=== PATIENT | female | born 1995 | race Caucasian/White ===

== ENCOUNTER 2017-05-02 22:02 | Inpatient (IN) | payer OTHER ==
[2017-05-02 22:37] LABS: ABSOLUTE BASOPHILS # (AUTO) 0.1 10^3/uL (0.0-0.2); ABSOLUTE EOSINOPHILS # (AUTO) 0.1 10^3/uL (0.0-0.6); ABSOLUTE LYMPHOCYTES (AUTO) 2.6 10^3/uL (0.5-4.7); ABSOLUTE MONOCYTES (AUTO) 0.7 10^3/uL (0.1-1.4); ABSOLUTE NEUT (AUTO) 5.5 10^3/uL (1.7-8.2); BASOPHILS % (AUTO) 0.9 % (0-2); EOSINOPHILS % (AUTO) 1.6 % (0-6); HEMATOCRIT 40.4 % (36.0-47.0); HEMOGLOBIN 13.5 g/dL (12.0-15.5); HGB HCT DIFFERENCE 0.1; LYMPHOCYTES % (AUTO) 28.7 % (13-45); MEAN CORPUSCULAR HEMOGLOBIN 29.2 pg (27.0-33.4); MEAN CORPUSCULAR HGB CONC 33.3 g/dL (32.0-36.0); MEAN CORPUSCULAR VOLUME 88 fl (80-97); MONOCYTES % (AUTO) 7.5 % (3-13); RED BLOOD COUNT 4.61 10^6/uL (3.72-5.28); RED CELL DISTRIBUTION WIDTH 14.6 % (11.5-14.0); SEGMENTED NEUTROPHILS % (AUTO) 61.3 % (42-78); WHITE BLOOD COUNT 8.9 10^3/uL (4.0-10.5)
[2017-05-02 22:54] LABS: ALANINE AMINOTRANSFERASE 34 U/L (5-35); ALBUMIN 4.2 g/dL (3.7-5.6); ALCOHOL < 10 mg/dL (NONE DETECTED); ALKALINE PHOSPHATASE 116 U/L (50-135); ANION GAP 9 (5-19); ASPARTATE AMINO TRANSFERASE 36 U/L (5-30); BILIRUBIN,DIRECT 0.2 mg/dL (0.0-0.4); BILIRUBIN,TOTAL 0.6 mg/dL (0.2-1.3); BLOOD UREA NITROGEN 14 mg/dL (7-20); CALCIUM 9.4 mg/dL (8.4-10.2); CARBON DIOXIDE 28 mmol/L (22-30); CHLORIDE 106 mmol/L (98-107); CREATININE RESULT 0.77 mg/dL (0.52-1.25); GLUCOSE 103 mg/dL (75-110); POTASSIUM 4.2 mmol/L (3.6-5.0); SODIUM 143.1 mmol/L (137-145); TOTAL PROTEIN 7.7 g/dL (6.3-8.2)
[2017-05-03 00:04] LABS: APPEARANCE,URINE SLIGHTLY-CLOUDY; BILIRUBIN,URINE NEGATIVE (NEGATIVE); GLUCOSE, URINE NEGATIVE (NEGATIVE); KETONES,URINE NEGATIVE (NEGATIVE); LEUKOCYTE ESTERASE,URINE NEGATIVE (NEGATIVE); NITRITE,URINE NEGATIVE (NEGATIVE); PROTEIN,URINE 30 mg/dL (NEGATIVE); URINE SPECIFIC GRAVITY 1.024; UROBILINOGEN,URINE NEGATIVE mg/dL (<2.0)
[2017-05-03 00:16] LABS: URINE BARBITURATES SCREEN NEGATIVE; URINE METHADONE SCREEN NEGATIVE; URINE OPIATES LOW NEGATIVE; URINE PHENCYCLIDINE SCREEN NEGATIVE
--- NOTE | 2017-05-03 00:57 | ER Document Report ---
ED General - General Chief Complaint: Overdose Stated Complaint: POSSIBLE OVERDOSE Time Seen by Provider: 05/02/17 23:33 Notes: Patient is a 21-year-old female without past medical history, no prior diagnosis of mental health illness who presents after ingesting 10,000 mg of acetaminophen at 2100. States that she did this without clear intention but states "I did not really care if I or not". No history of similar attempts in the past. Denies any active suicidal ideation at this time. She has had some associated nausea without vomiting. Nothing improves or worsens her symptoms. She denies any coingestions. She came to the emergency department at the request of her but has not informed her primary care doctor that she has come to the emergency department. TRAVEL OUTSIDE OF THE [place] IN LAST 30 DAYS: No - Related Data Allergies/Adverse Reactions: No Known Drug Allergies Allergy (Verified 05/03/17 01:10) Past Medical History - General Information source: Patient - Social History Smoking Status: Never Smoker Frequency of alcohol use: None Drug Abuse: None Lives with: Spouse/Significant other Family History: Reviewed & Not Pertinent Patient has suicidal ideation: No Patient has homicidal ideation: No Renal/ Medical History: Denies: Hx Peritoneal Dialysis Review of Systems - Review of Systems Notes: Constitutional: Negative for fever. HENT: Negative for sore throat. Eyes: Negative for visual changes. Cardiovascular: Negative for chest pain. Respiratory: Negative for shortness of breath. Gastrointestinal: Negative for abdominal pain, positive for nausea Genitourinary: Negative for dysuria. Musculoskeletal: Negative for back pain. Skin: Negative for rash. Neurological: Negative for headaches, weakness or numbness. 10 point ROS negative except as marked above and in HPI. Physical Exam - Vital signs Vitals: Temp Pulse Resp BP Pulse Ox 98 F 80 14 105/62 100 05/02/17 22:17 05/02/17 22:17 05/02/17 22:17 05/02/17 22:17 05/02/17 22:17 Interpretation: Normal Notes: PHYSICAL EXAMINATION: GENERAL: Well-appearing, well-nourished and in no acute distress. HEAD: Atraumatic, normocephalic. EYES: Pupils equal round and reactive to light, extraocular movements intact, sclera anicteric, conjunctiva are normal. ENT: nares patent, oropharynx clear without exudates. Moist mucous membranes. NECK: Normal range of motion, supple without lymphadenopathy LUNGS: Breath sounds clear to auscultation bilaterally and equal. No wheezes rales or rhonchi. HEART: Regular rate and rhythm without murmurs ABDOMEN: Soft, nontender, normoactive bowel sounds. No guarding, no rebound. No masses appreciated. EXTREMITIES: Normal range of motion, no pitting or edema. No cyanosis. NEUROLOGICAL: No focal neurological deficits. Moves all extremities spontaneously and on command. PSYCH: Normal mood, normal affect. SKIN: Warm, Dry, normal turgor, no rashes or lesions noted. Course - Re-evaluation Re-evalutation: 05/03/17 00:56 Patient presents after ingesting up to 10,000 mg of acetaminophen. Initial Tylenol level obtained immediately upon arrival is elevated although this is sooner than 4 hours from ingestion which patient is certain was 2100. We will draw second level now for a true four-hour level. She denies any additional coingestions. Salicylates are negative. Remainder of her laboratories are unremarkable. She denies any active suicidal ideation although states that when she took the pills "I was okay with dying". This is a very severe suicide attempt whether or not patient knew this is unclear. She was placed on involuntary commitment and if Tylenol levels remain elevated she may require N- acetylcysteine therapy. 05/03/17 02:00 4 hour Tylenol level remains at a toxic level at 193. I discussed this case with poison control who agrees with the administration of N-acetylcysteine. Will load with 150 mg/kg IV followed by 15 mg/kg continuous infusion for the next 23 hours thereafter. She will require admission to the hospitalist service. IVC has been placed. - Vital Signs Vital signs: Temp Pulse Resp BP Pulse Ox 98.1 F 78 16 110/72 98 05/03/17 01:02 05/03/17 01:02 05/03/17 01:02 05/03/17 01:02 05/03/17 01:02 - Laboratory Result Diagrams: 05/02/17 22:30 05/02/17 22:30 Laboratory results interpreted by me: 05/02/17 05/02/17 05/02/17 22:30 22:30 23:44 RDW 14.6 H AST 36 H Urine Protein 30 H Urine Blood LARGE H Urine Ascorbic Acid 40 H Salicylates < 1.0 L Acetaminophen 244 H* 05/03/17 00:56 RDW AST Urine Protein Urine Blood Urine Ascorbic Acid Salicylates Acetaminophen 193 H* - EKG Interpretation by Me Additional EKG results interpreted by me: 05/03/17 02:46 Normal sinus rhythm. Rate 72. No ST elevations or depressions. QTC is 425 Discharge - Discharge Clinical Impression: Attempted suicide Acetaminophen overdose Qualifiers: Encounter type: initial encounter Injury intent: intentional self-harm Qualified Code(s): T39.1X2A - Poisoning by 4-Aminophenol derivatives, intentional self-harm, initial encounter Condition: Fair Disposition: ADMITTED INPATIENT [facility] Admitted: Telemetry
[2017-05-03] MEDS ORDERED: ACETYLCYSTEINE INJ 6000 MG/30 ML IV ONE (01:50)
[2017-05-03] MEDS ORDERED: ONDANSETRON HCL INJ/PF 4 MG/2 ML SDV IV ONE (02:03)
[2017-05-03] MEDS ORDERED: IPRATROPIUM/ALBUTEROL 0.5-2.5 MG/3 ML AMPUL NEB PRN (02:09)
[2017-05-03] MEDS ORDERED: ACETYLCYSTEINE INJ 6000 MG/30 ML IV SCH ×2 (02:15→03:00)
[2017-05-03] MEDS ORDERED: LORAZEPAM INJ 2 MG/1 ML VIAL IV PRN (02:18)
[2017-05-03 03:49] LABS: PROTHROMBIN TIME 13.7 SEC (11.4-15.4)
[2017-05-03 03:59] LABS: ALANINE AMINOTRANSFERASE 32 U/L (5-35); ALKALINE PHOSPHATASE 22 U/L (50-135); ANION GAP 18 (5-19); ASPARTATE AMINO TRANSFERASE 24 U/L (5-30); BILIRUBIN,DIRECT 0.2 mg/dL (0.0-0.4); BILIRUBIN,TOTAL 0.5 mg/dL (0.2-1.3); BLOOD UREA NITROGEN 13 mg/dL (7-20); CARBON DIOXIDE 23 mmol/L (22-30); CHLORIDE 104 mmol/L (98-107); CREATININE RESULT 0.52 mg/dL (0.52-1.25); GLUCOSE 115 mg/dL (75-110); POTASSIUM 3.7 mmol/L (3.6-5.0); SODIUM 144.6 mmol/L (137-145); TOTAL PROTEIN 7.2 g/dL (6.3-8.2)
[2017-05-03] MEDS: NORMAL SALINE 1000 ML 1,000 ML IV SCH ×2 (04:17→08:53)
--- NOTE | 2017-05-03 04:52 | PDOC H&P ---
History of Present Illness Admission Date/PCP: 05/03/17 02:10 Patient complains of: Intentional suicide attempt by Tylenol consuming 20 tablets of 500 mg History of Present Illness: JOSEPHINE ESCAMILLA is a 21 year old female with a history of para #1 9 months ago , wrist cutting 3 months ago uncontrolled depression and attempted suicide by acetaminophen consuming 20 tablets of 500 mg 2 hours prior to presentation. After consumption the patient was nauseated and vomited gastric content but did not note any tablets intact. In the emergency room she was found to have a toxic acetaminophen level and started on Acetadote and referred to the hospitalist for admission. She denies ingestion of other medication or toxins. Past Medical History Cardiac Medical History: Reports: None Pulmonary Medical History: Reports: None EENT Medical History: Reports: None Neurological Medical History: Reports: None Endocrine Medical History: Reports: None Renal/ Medical History: Reports: None Malignancy Medical History: Reports: None GI Medical History: Reports: None Musculoskeltal Medical History: Reports: None Psychiatric Medical History: Reports: Depression, Other - Obesity Hematology: Reports: None Infectious Medical History: Reports: None Social History Information Source: Patient Lives with: Family, Spouse/Significant other Smoking Status: Never Smoker Frequency of Alcohol Use: None Hx Recreational Drug Use: No Hx Prescription Drug Abuse: No - Advance Directive Resuscitation Status: Full Code Family History Family History: Other - Mental illness Parental Family History Reviewed: Yes Children Family History Reviewed: Yes Sibling(s) Family History Reviewed.: Yes Medication/Allergy Allergies/Adverse Reactions: No Known Drug Allergies Allergy (Verified 05/03/17 01:10) Review of Systems Constitutional: ABSENT: chills, fever(s), headache(s), weight gain, weight loss Eyes: ABSENT: visual disturbances Ears: ABSENT: hearing changes Cardiovascular: ABSENT: chest pain, dyspnea on exertion, edema, orthropnea, palpitations Respiratory: ABSENT: cough, hemoptysis Gastrointestinal: ABSENT: abdominal pain, constipation, diarrhea, hematemesis, hematochezia, nausea, vomiting Genitourinary: ABSENT: dysuria, hematuria Musculoskeletal: ABSENT: joint swelling Integumentary: ABSENT: rash, wounds Neurological: ABSENT: abnormal gait, abnormal speech, confusion, dizziness, focal weakness, syncope Psychiatric: ABSENT: anxiety, depression, homidical ideation, suicidal ideation Endocrine: ABSENT: cold intolerance, heat intolerance, polydipsia, polyuria Hematologic/Lymphatic: ABSENT: easy bleeding, easy bruising Physical Exam Vital Signs: Temp Pulse Resp BP Pulse Ox 98.1 F 78 15 110/72 98 05/03/17 01:02 05/03/17 01:02 05/03/17 04:00 05/03/17 01:02 05/03/17 04:00 General appearance: PRESENT: no acute distress, well-developed, well-nourished Head exam: PRESENT: atraumatic, normocephalic Eye exam: PRESENT: conjunctiva pink, EOMI, PERRLA. ABSENT: scleral icterus Ear exam: PRESENT: normal external ear exam Mouth exam: PRESENT: moist, tongue midline Neck exam: ABSENT: carotid bruit, JVD, lymphadenopathy, thyromegaly Respiratory exam: PRESENT: clear to auscultation nj. ABSENT: rales, rhonchi, wheezes Cardiovascular exam: PRESENT: RRR. ABSENT: diastolic murmur, rubs, systolic murmur Pulses: PRESENT: normal dorsalis pedis pul Vascular exam: PRESENT: normal capillary refill GI/Abdominal exam: PRESENT: normal bowel sounds, soft. ABSENT: distended, guarding, mass, organolmegaly, rebound, tenderness Rectal exam: PRESENT: deferred Extremities exam: PRESENT: full ROM. ABSENT: calf tenderness, clubbing, pedal edema Neurological exam: PRESENT: alert, awake, oriented to person, oriented to place , oriented to time, oriented to situation, CN II-XII grossly intact. ABSENT: motor sensory deficit Psychiatric exam: PRESENT: appropriate affect, normal mood. ABSENT: homicidal ideation, suicidal ideation Skin exam: PRESENT: dry, intact, warm. ABSENT: cyanosis, rash Results Laboratory Results: 05/03/17 03:33 05/03/17 03:33 Sodium 144.6 Potassium 3.7 Chloride 104 Carbon Dioxide 23 Anion Gap 18 BUN 13 Creatinine 0.52 Est GFR ( Amer) > 60 Est GFR (Non-Af Amer) > 60 Glucose 115 H Calcium 9.0 Total Bilirubin 0.5 AST 24 ALT 32 Alkaline Phosphatase 22 L Total Protein 7.2 Albumin 4.0 Assessment & Plan - Diagnosis (1) Acetaminophen overdose Qualifiers: Encounter type: initial encounter Injury intent: intentional self-harm Qualified Code(s): T39.1X2A - Poisoning by 4-Aminophenol derivatives, intentional self-harm, initial encounter Is this a current diagnosis for this admission?: YesPlan: Ingestion approximately 6 hours ago on Acetadote protocol, ICU admission, follow -up acetaminophen level, Chem-12 every 8 hours. (2) Suicide attempt Is this a current diagnosis for this admission?: YesPlan: Suicide precautions, mental health consult IVC papers filed (3) Obesity Is this a current diagnosis for this admission?: YesPlan: Evaluate TSH pending - Time Time Spent: 30 to 50 Minutes - Inpatient Certification Medical Necessity: Need Close Monitoring Due to Risk of Patient Decompensation
[2017-05-03] MEDS: HEPARIN SOD (PORCINE) 5,000 UNIT/ML 1 ML SYRINGE SUBCUT SCH ×3 (06:19→21:10)
[2017-05-03] MEDS ORDERED: ONDANSETRON HCL INJ/PF 4 MG/2 ML SDV IV PRN (08:31)
[2017-05-03] MEDS ORDERED: NORMAL SALINE 1000 ML 3,000 ML IV ONE (09:30)
[2017-05-03] MEDS ORDERED: WATER IV ONE ×3 (09:30→14:30)
[2017-05-03] MEDS ORDERED: DEXTROSE 5% IV ONE ×3 (09:30→14:30)
[2017-05-03] MEDS ORDERED: ACETYLCYSTEINE IV ONE ×3 (09:30→14:30)
[2017-05-03 10:37] LABS: PROTHROMBIN TIME 14.8 SEC (11.4-15.4)
[2017-05-03 10:46] LABS: ALANINE AMINOTRANSFERASE 36 U/L (5-35); ALBUMIN 3.6 g/dL (3.7-5.6); ANION GAP 15 (5-19); ASPARTATE AMINO TRANSFERASE 19 U/L (5-30); BILIRUBIN,DIRECT 0.1 mg/dL (0.0-0.4); BILIRUBIN,TOTAL 0.6 mg/dL (0.2-1.3); BLOOD UREA NITROGEN 11 mg/dL (7-20); CALCIUM 8.7 mg/dL (8.4-10.2); CARBON DIOXIDE 22 mmol/L (22-30); CHLORIDE 106 mmol/L (98-107); CREATININE RESULT 0.47 mg/dL (0.52-1.25); GLUCOSE 122 mg/dL (75-110); POTASSIUM 3.9 mmol/L (3.6-5.0); SODIUM 142.5 mmol/L (137-145); TOTAL PROTEIN 6.7 g/dL (6.3-8.2)
[2017-05-03 10:52] LABS: ALKALINE PHOSPHATASE < 20 U/L (50-135)
--- NOTE | 2017-05-03 15:35 | PDOC PROGRESS REPORT ---
Subjective Progress Note for:: 05/03/17 Subjective:: Patient denies headache, chest pain, shortness of breath, fever, chills, nausea , vomiting, new onset weakness. Physical Exam Vital Signs: Temp Pulse Resp BP Pulse Ox 98.4 F 78 16 116/53 L 100 05/03/17 15:04 05/03/17 15:04 05/03/17 15:04 05/03/17 15:04 05/03/17 15:04 Exam: GENERAL: A+Ox3; No acute distress HEENT: Conjunctiva clear, nonicteric, moist mucous membranes, no JVD, midline trachea RESPIRATORY:CTAB CARDIAC: Regular rate and rhythm, no murmurs/gallops/rubs ABDOMEN: Soft, nondistended, nontender, positive bowel sounds, no rebound, no guarding EXTREMETIES: No cyanosis, clubbing; trace edema NEUROLOGIC: Alert, oriented to person/place/time, CN's grossly intact, no focal deficits SKIN: No rash, wounds PSYCH: Normal mood, normal affect Results Laboratory Results: 05/03/17 10:21 05/03/17 05/03/17 03:33 10:21 Sodium 144.6 142.5 Potassium 3.7 3.9 Chloride 104 106 Carbon Dioxide 23 22 Anion Gap 18 15 BUN 13 11 Creatinine 0.52 0.47 L Est GFR ( Amer) > 60 > 60 Est GFR (Non-Af Amer) > 60 > 60 Glucose 115 H 122 H Calcium 9.0 8.7 Total Bilirubin 0.5 0.6 AST 24 19 ALT 32 36 H Alkaline Phosphatase 22 L < 20 L Total Protein 7.2 6.7 Albumin 4.0 3.6 L Assessment & Plan - Diagnosis (1) Acetaminophen overdose Qualifiers: Encounter type: initial encounter Injury intent: intentional self-harm Qualified Code(s): T39.1X2A - Poisoning by 4-Aminophenol derivatives, intentional self-harm, initial encounter Is this a current diagnosis for this admission?: YesPlan: Is currently going to be re-bolused and restarted on the third bag protocol approved for hospital use. Will repeat patient's labs. Will give patient 2 L normal saline bolus as she does appear to be orthostatic. Continue to monitor closely with cautions. Patient continues to be on IVC. (2) Suicide attempt Is this a current diagnosis for this admission?: YesPlan: psych Consult and precautions (3) Obesity Qualifiers: Obesity type: due to excess calories Obesity severity: non-morbid Qualified Code(s): E66.09 - Other obesity due to excess calories Is this a current diagnosis for this admission?: Yes - Time Time Spent with patient: 15-24 minutes Medications reviewed and adjusted accordingly: Yes
[2017-05-03 18:26] LABS: PROTHROMBIN TIME 14.4 SEC (11.4-15.4)
[2017-05-03 18:43] LABS: ALANINE AMINOTRANSFERASE 38 U/L (5-35); ALBUMIN 3.1 g/dL (3.7-5.6); ALKALINE PHOSPHATASE 63 U/L (50-135); ANION GAP 9 (5-19); ASPARTATE AMINO TRANSFERASE 20 U/L (5-30); BILIRUBIN,DIRECT 0.2 mg/dL (0.0-0.4); BILIRUBIN,TOTAL 0.6 mg/dL (0.2-1.3); BLOOD UREA NITROGEN 9 mg/dL (7-20); CALCIUM 8.6 mg/dL (8.4-10.2); CARBON DIOXIDE 24 mmol/L (22-30); CHLORIDE 109 mmol/L (98-107); CREATININE RESULT 0.61 mg/dL (0.52-1.25); GLUCOSE 123 mg/dL (75-110); POTASSIUM 3.7 mmol/L (3.6-5.0); SODIUM 142.1 mmol/L (137-145)
[2017-05-03] MEDS: LEVETIRACETAM 500 MG TABLET PO SCH (21:11)
[2017-05-04] MEDS: HEPARIN SOD (PORCINE) 5,000 UNIT/ML 1 ML SYRINGE SUBCUT SCH (05:17)
[2017-05-04 05:57] LABS: ABSOLUTE BASOPHILS # (AUTO) 0.1 10^3/uL (0.0-0.2); ABSOLUTE EOSINOPHILS # (AUTO) 0.2 10^3/uL (0.0-0.6); ABSOLUTE LYMPHOCYTES (AUTO) 2.7 10^3/uL (0.5-4.7); ABSOLUTE MONOCYTES (AUTO) 0.4 10^3/uL (0.1-1.4); ABSOLUTE NEUT (AUTO) 3.1 10^3/uL (1.7-8.2); EOSINOPHILS % (AUTO) 2.9 % (0-6); HEMATOCRIT 35.8 % (36.0-47.0); HEMOGLOBIN 11.8 g/dL (12.0-15.5); HGB HCT DIFFERENCE -0.4; MEAN CORPUSCULAR HEMOGLOBIN 28.9 pg (27.0-33.4); MEAN CORPUSCULAR VOLUME 88 fl (80-97); MONOCYTES % (AUTO) 5.8 % (3-13); RED BLOOD COUNT 4.08 10^6/uL (3.72-5.28); RED CELL DISTRIBUTION WIDTH 15.1 % (11.5-14.0); SEGMENTED NEUTROPHILS % (AUTO) 48.3 % (42-78); WHITE BLOOD COUNT 6.4 10^3/uL (4.0-10.5)
[2017-05-04 06:12] LABS: ALBUMIN 3.1 g/dL (3.7-5.6); ANION GAP 12 (5-19); BLOOD UREA NITROGEN 5 mg/dL (7-20); CALCIUM 8.6 mg/dL (8.4-10.2); CARBON DIOXIDE 20 mmol/L (22-30); CHLORIDE 111 mmol/L (98-107); GLUCOSE 115 mg/dL (75-110); POTASSIUM 3.5 mmol/L (3.6-5.0); SODIUM 143.2 mmol/L (137-145)
[2017-05-04 06:14] LABS: ALANINE AMINOTRANSFERASE 38 U/L (5-35); ALKALINE PHOSPHATASE 85 U/L (50-135); ASPARTATE AMINO TRANSFERASE 17 U/L (5-30); BILIRUBIN,DIRECT 0.3 mg/dL (0.0-0.4); BILIRUBIN,TOTAL 0.3 mg/dL (0.2-1.3)
[2017-05-04] MEDS ORDERED: POTASSIUM CHLORIDE 10 MEQ TABLET.SA PO ONE (07:09)
--- NOTE | 2017-05-04 08:52 | PSYCHOLOGICAL NOTE ---
Psych Note - Psych Note Psych Note: Met with Patient who reported feeling depressed over the course of several years but with increased depression the last few months. She reported not feeling sad, rather having days of severe agitation and irritability and dysthymia and some good days. She reported chronic thoughts of suicide without a plan but yesterday she began researching ways to by suicide. She stated her plan was to take a bunch of sleeping pills and place an "exit bag" over her head. However, she stated, she and her of 10 months got into an argument and she took what she had or could find. She reported she was a "cutter " when a teenager but stopped the behavior, though returned to it a few months ago briefly. She reported she has a 9-month old daughter and feels as though part of her depression is attributed to post-, but her depression has been chronic since she was a teenager. Patient denied any previous suicide attempts, inpatient psychiatric hospitalizations, or outpatient treatment. She reported a strong maternal family history of bipolar and depression disorders. She is amenable to medication stabilization and outpatient treatment. She denied a history of impulse control problems. Patient was oriented to person, place, time, and situation. Mood was euthymic and affect was mood congruent. She denied current suicidal / homicidal ideation , intent, or plan and indicated she would not try to by suicide again. She denied psychosis and no delusions were noted. Thought processes were organized, linear, and rational. Conversational speech was within normal limits for rate, tone, and prosody. Intellectual abilities were estimated within the average range. Recent and remote memory appeared intact. Attention and concentration was fair. Insight, judgment, and impulse control was poor. 1. [id number] (F32.0) Major Depression, Recurrent, Moderate Impression / Plan: Patient continues to meet criteria for IVC. She reportedly researched ways to by suicide and though she is regretful, her affect and mood were incongruent with regret. Her support system lives in [place] and she reports a theresa 10-month marriage. She reports chronic depression without ever seeking help despite a strong maternal history of bipolar / depression with subsequent inpatient hospitalizations. Patient has a 9-month old baby and there was little thought regarding her well-being. Patient is considered to be impulsive and possibly bipolar. She will require inpatient psychiatric care for stabilization and for her safety. Upon medical stabilization, inpatient psychiatric care will pursued. Attending hospitalist in agreement with recommendation and disposition.
[2017-05-04] MEDS: LEVETIRACETAM 500 MG TABLET PO SCH ×2 (09:39→21:25)
[2017-05-04] MEDS: FLUOXETINE HCL 20 MG CAPSULE PO SCH (09:50)
[2017-05-04] MEDS ORDERED: FLUOXETINE HCL 20 MG CAPSULE PO SCH (10:00)
--- NOTE | 2017-05-04 11:25 | PDOC PROGRESS REPORT ---
Subjective Progress Note for:: 05/04/17 Subjective:: Patient is seen and examined at bedside with her present. Patient denies headache, chest pain, shortness of breath, fever, chills, nausea, vomiting, new onset weakness. Physical Exam Vital Signs: Temp Pulse Resp BP Pulse Ox 98.2 F 76 16 111/55 L 100 05/04/17 03:35 05/04/17 03:35 05/04/17 03:35 05/04/17 03:35 05/04/17 03:35 Intake & Output 05/03/17 05/04/17 05/05/17 06:59 06:59 06:59 Intake Total 2538 Balance 2538 Weight 91.4 kg Exam: GENERAL: A+Ox3; No acute distress HEENT: Slight mydriasis, Conjunctiva clear, nonicteric, moist mucous membranes, no JVD, midline trachea RESPIRATORY:CTAB CARDIAC: Regular rate and rhythm, no murmurs/gallops/rubs ABDOMEN: Soft, nondistended, nontender, positive bowel sounds, no rebound, no guarding EXTREMETIES: No cyanosis, clubbing; trace edema NEUROLOGIC: Alert, oriented to person/place/time, CN's grossly intact, no focal deficits SKIN: No rash, wounds PSYCH: Normal mood, normal affect Results Laboratory Results: 05/04/17 05:47 05/04/17 05:47 05/03/17 05/03/17 05/04/17 10:21 18:12 05:47 WBC 6.4 RBC 4.08 Hgb 11.8 L Hct 35.8 L MCV 88 MCH 28.9 MCHC 33.0 RDW 15.1 H Plt Count 243 Seg Neutrophils % 48.3 Lymphocytes % 42.0 Monocytes % 5.8 Eosinophils % 2.9 Basophils % 1.0 Absolute Neutrophils 3.1 Absolute Lymphocytes 2.7 Absolute Monocytes 0.4 Absolute Eosinophils 0.2 Absolute Basophils 0.1 Sodium 142.5 142.1 Potassium 3.9 3.7 Chloride 106 109 H Carbon Dioxide 22 24 Anion Gap 15 9 BUN 11 9 Creatinine 0.47 L 0.61 Est GFR ( Amer) > 60 > 60 Est GFR (Non-Af Amer) > 60 > 60 Glucose 122 H 123 H Calcium 8.7 8.6 Total Bilirubin 0.6 0.6 AST 19 20 ALT 36 H 38 H Alkaline Phosphatase < 20 L 63 Total Protein 6.7 6.0 L Albumin 3.6 L 3.1 L 05/04/17 05:47 WBC RBC Hgb Hct MCV MCH MCHC RDW Plt Count Seg Neutrophils % Lymphocytes % Monocytes % Eosinophils % Basophils % Absolute Neutrophils Absolute Lymphocytes Absolute Monocytes Absolute Eosinophils Absolute Basophils Sodium 143.2 Potassium 3.5 L Chloride 111 H Carbon Dioxide 20 L Anion Gap 12 BUN 5 L Creatinine 0.50 L Est GFR ( Amer) > 60 Est GFR (Non-Af Amer) > 60 Glucose 115 H Calcium 8.6 Total Bilirubin 0.3 AST 17 ALT 38 H Alkaline Phosphatase 85 Total Protein 6.0 L Albumin 3.1 L Assessment & Plan - Diagnosis (1) Acetaminophen overdose Qualifiers: Encounter type: initial encounter Injury intent: intentional self-harm Qualified Code(s): T39.1X2A - Poisoning by 4-Aminophenol derivatives, intentional self-harm, initial encounter Is this a current diagnosis for this admission?: YesPlan: Patient has completed Acetadote protocol. Tylenol levels are now negative. Patient is medically stable for transfer to inpatient psychiatry, if deemed appropriate. Patient continues to be on IVC. (2) Suicide attempt Is this a current diagnosis for this admission?: YesPlan: IVC precautions Initiate patient on keppra and prozac Appreciate imput from Psych. (3) Obesity Qualifiers: Obesity type: due to excess calories Obesity severity: non-morbid Qualified Code(s): E66.09 - Other obesity due to excess calories Is this a current diagnosis for this admission?: Yes (4) Depression Qualifiers: Depression Type: unspecified Qualified Code(s): F32.9 - Major depressive disorder, single episode, unspecified Is this a current diagnosis for this admission?: YesPlan: Initiate patient on keppra and prozac Appreciate imput from Psych. 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
--- NOTE | 2017-05-05 09:24 | EKG REPORT ---
SEVERITY:- NORMAL ECG - SINUS RHYTHM : Confirmed by: Jas West 05-May-2017 09:23:11
[2017-05-05] MEDS: FLUOXETINE HCL 20 MG CAPSULE PO SCH (10:35)
[2017-05-05] MEDS: LEVETIRACETAM 500 MG TABLET PO SCH (10:35)
--- NOTE | 2017-05-05 11:25 | PDOC TRANSFER SUMMARY ---
General Admission Date/PCP: 05/03/17 02:10 Admission Date: 05/03/17 Transfer Date: 05/05/17 Accepting Facility: Other (Comments) - [facility] psychaitry Resuscitation Status: Full Code - Transfer Diagnosis (1) Acetaminophen overdose Is this a current diagnosis for this admission?: Yes (2) Suicide attempt Is this a current diagnosis for this admission?: Yes (3) Obesity Is this a current diagnosis for this admission?: Yes (4) Depression Is this a current diagnosis for this admission?: Yes - Transfer Medications Home Medications: No Home Medications 05/03/17 Transfer Medications: Current Medications Fluoxetine HCl (Prozac 20 Mg Capsule) 20 mg PO DAILY INEZ Stop: 06/03/17 09:59 Last Admin: 05/05/17 10:35 Dose: 20 mg Levetiracetam (Keppra 500 Mg Tablet) 250 mg PO Q12 INEZ Stop: 06/02/17 21:59 Last Admin: 05/05/17 10:35 Dose: 250 mg Ondansetron HCl (Zofran Inj/Pf 4 Mg/2 Ml Sdv) 4 mg IV Q6HP PRN Stop: 06/02/17 08:30 - Allergies Allergies/Adverse Reactions: No Known Drug Allergies Allergy (Verified 05/03/17 01:10) - Diet/Activity Discharge Diet: Regular Hospital Course Hospital Course: JOSEPHINE ESCAMILLA is a 21 year old female with a history of recent live 9 months ago, wrist cutting 3 months ago uncontrolled depression and attempted suicide by acetaminophen consuming 20 tablets of 500 mg 2 hours prior to presentation. After consumption the patient was nauseated and vomited gastric content but did not note any tablets intact. In the emergency room she was found to have a toxic acetaminophen level and started on Acetadote and referred to the hospitalist for admission. Patient had mild sinus tachycardia on admission and this improved with hydration. Patient completed the Acetadote protocol and was stable for transfer to [facility]. Physical Exam Vital Signs: Temp Pulse Resp BP Pulse Ox 98.2 F 68 19 101/51 L 100 05/05/17 08:12 05/05/17 08:12 05/05/17 08:12 05/05/17 08:12 05/05/17 08:12 Intake & Output 05/04/17 05/05/17 05/06/17 06:59 06:59 06:59 Intake Total 2538 923 Balance 2538 923 Weight 91.4 kg 88 kg Exam: GENERAL: A+Ox3; No acute distress HEENT: Slight mydriasis, Conjunctiva clear, nonicteric, moist mucous membranes, no JVD, midline trachea RESPIRATORY:CTAB CARDIAC: Regular rate and rhythm, no murmurs/gallops/rubs ABDOMEN: Soft, nondistended, nontender, positive bowel sounds, no rebound, no guarding EXTREMETIES: No cyanosis, clubbing, edema NEUROLOGIC: Alert, oriented to person/place/time, CN's grossly intact, no focal deficits SKIN: No rash, wounds PSYCH: Normal mood, normal affect Results Laboratory Results: 05/04/17 05:47 05/04/17 05:47 Plan Time Spent: Less than 30 Minutes
[2017-05-05] MEDS ORDERED: IBUPROFEN 400 MG TABLET PO ONE (11:45)
[2017-05-05] MEDS ORDERED: ONDANSETRON 4 MG TAB.RAPDIS PO ONE (11:45)
[2017-05-05 11:52] VITALS: BP 113/47
--- NOTE | 2017-05-05 14:35 | PSYCHOLOGICAL NOTE ---
Psych Note - Psych Note Psych Note: Patient is a 21 year old female who is admitted to the third floor after an intentional OD of Tylenol. She was petitioned for IVC on 05/03/17 via ED Physician due to harm to self. Patient denied SI today. She admitted to a history of self harm via cutting wrists. She denied previous prescribed medications and stated she has not had therapy recently. She stated she has taken 3 doses of Keppra and 1 dose of Prozac while in the hospital. She admitted she had thought about ways to take her life previously, knew that taking the Tylenol would "hurt me a lot," and didn't really care if she . She stated after she took the medication she realized the seriousness, felt dizzy, got scared, told her , he made her go to the bathroom to vomit, she called poison control who then instructed her to go to the ED, and her brought her to the ED. She admitted her and her had been arguing. She identified she has been for the last 9-10 months, they have been together for a year and a half prior to marriage, has a 9 month old child, and her family (natural supports) reside in [place]. Patient was alert and oriented x4. Mood was depressed with flat affect. She did become tearful on 2 occasions, once while talking about arguing with her and once when informed of acceptance to [facility]. She denied current SI, admitted to having SI thoughts for awhile prior to the OD attempt, and admitted to a history of self injury via cutting wrist. She did not appear to be responding to internal stimuli AEB fair eye contact, answering questions appropriately when addressed, and elaborating on answers. Thought processes were linear. Conversational speech was soft in tone and WNL for rate and prosody. Intellectual abilities are estimated to be average. Insight, judgment and impulse control are poor AEB patient's response that in the moment she knew taking the Tylenol would hurt her a lot and she didn't care if she . Diagnosis: 295.32 (F32.0) Major Depression, Recurrent, Moderate R/O 296.80 (F31.9) Unspecified Bipolar Related Disorder Impression/Plan: Recommendation to maintain IVC status. Patient came to the hospital per poison control recommendation after taking Tylenol for intentional OD, her acetaminophen level was 193 upon arrival, she identified having SI thoughts for awhile prior to the OD attempt, she admitted to a history of self injury via cutting wrist, medications were just started yesterday, and she has life stressors (marital discord, 9 month old child that she has not bonded with) . Consulted with Dr. Quintana regarding the management and care of patient. Patient accepted to [facility] at 0945. Will move forward with placement.
== END 2017-05-05 12:40 | disposition other institution (70) | DRG 918 ==
LOC: ER 22:02 → EH 05-03 02:10 → 3N 05-03 10:14
PROVIDERS: ADMIT Internal Medicine; ATTEND Internal Medicine
DX: T39.1X2A Poisoning by 4-Aminophenol derivatives, intentional self-harm, initial encounter (principal); F32.9 Major depressive disorder, single episode, unspecified; E66.9 Obesity, unspecified; Y92.9 Unspecified place or not applicable
CPT/HCPCS: 36415; 80053; 80307; 81001; 84443; 84703; 85025; 85610; 93005; 93010; 99285; J0132; J1644; J2060; J2405; J3490; J7030; J7060; S0119